=== PATIENT | male | born 1985 | race Two or more races ===

== ENCOUNTER 2024-06-08 19:45 | Emergency (ER) | payer OTHER, SELFPAY ==
[2024-06-08 19:51] VITALS: BP 204/80; PULSE 94; TEMP 36.7; O2SAT 99
--- NOTE | 2024-06-08 20:11 | US_ITS ---
[facility] [id number] Patient Name: SHANNEN RICO MRN: [id number] date: 1985 Sex: M Assigned Patient Location: ED.MAIN Current Patient Location: Accession/Order Number: [id number] Exam Date: 06/08/2024 21:05 Report Date: 06/08/2024 22:41 At the request of: GABINO MÉNDEZ Procedure: US venous doppler LE BI US venous doppler LE BI, 06/08/2024 9:05 PM EDT INDICATION: HX DVT COMPARISON: None available at the time of dictation. FINDINGS: Bilateral lower extremity venous duplex The visualized veins of the venous system each lower extremity are within normal limits with regard to spontaneous flow, phasic flow, augmentation and compression. No intraluminal thrombus formation is identified. No superficial venous thrombus is present. US/US venous doppler LE BI IMPRESSION: No evidence of acute deep or superficial venous thrombosis in either lower extremity. Electronically authenticated by: CANELO HARTMAN Date: 06/08/2024 22:41
[2024-06-08 20:31] VITALS: PULSE 88
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
[2024-06-08 20:49] LABS: Basophils Percent Auto 0.4 % (0.2-2.0); Eosinophils Absolute Auto 0.2 10^3/uL (0.0-0.7); Hematocrit 43.5 % (42.0-54.0); Hemoglobin 15.1 g/dL (14.0-18.0); Immature Granulocytes Abs Auto 0.01 10^3/uL (0.00-0.03); Immature Granulocytes Pct Auto 0.1 % (0.0-0.5); Lymphocytes Absolute Auto 2.6 10^3/uL (1.2-3.8); Lymphocytes Percent Auto 33.3 % (20.5-60.0); Mean Corpuscular HGB Conc 34.7 g/dL (29.9-35.2); Mean Corpuscular Hemoglobin 34.2 pg (25.9-34.0); Mean Corpuscular Volume 98.4 fL (80.0-94.0); Mean Platelet Volume 9.7 fL (9.5-13.5); Monocytes Absolute Auto 0.5 10^3/uL (0.3-0.8); Neutrophils Absolute Auto 4.5 10^3/uL (1.4-6.5); Neutrophils Percent Auto 58.2 % (43.0-75.0); Platelet Count 200 10^3/uL (150-450); Red Blood Count 4.42 10^6/uL (4.70-6.10); Red Cell Distribution Width 12.6 % (11.0-15.0); White Blood Count 7.7 10^3/uL (4.0-11.0)
[2024-06-08] MEDS: GABAPENTIN 300 MG CAPSULE PO (20:55)
[2024-06-08 21:05] LABS: Anion Gap 11.5; BUN Creatinine Ratio 13.1; Calcium 9.1 mg/dL (8.5-10.1); Carbon Dioxide 29.2 mmol/L (21.0-32.0); Chloride 102 mmol/L (98-107); Estimated GFR (African America >60 (>=60); Estimated GFR (Non-African Ame >60 (>=60); Glucose 123 mg/dL (74-106); Potassium 3.7 mmol/L (3.5-5.1); Sodium 139 mmol/L (136-145)
[2024-06-08 21:08] LABS: INR 1.03; Prothrombin Time 10.9 sec (9.0-11.6)
== END 2024-06-08 22:21 | disposition left against medical advice (07) ==
PROVIDERS: Physician Assistant; Emergency Provider Emergency Medicine
DX: G62.9 Polyneuropathy, unspecified (principal); M79.605 Pain in left leg; M79.604 Pain in right leg; Z86.718 Personal history of other venous thrombosis and embolism; Z53.29 Procedure and treatment not carried out because of patient's decision for other reasons
CPT/HCPCS: 36415; 80048; 85025; 85610; 93970; 99284